=== PATIENT | male | born 1985 | race Caucasian/White ===

== ENCOUNTER → 2017-10-19 | Outpatient (CLI) | payer OTHER ==
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
== END | disposition home or self-care (01) ==
LOC: RADCTMAIN 14:27
PROVIDERS: ATTEND Family Medicine
DX: R16.1 Splenomegaly, not elsewhere classified (principal)
CPT/HCPCS: 74177; Q9967

== ENCOUNTER 2018-04-21 22:05 | Emergency (ER) | payer OTHER ==
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
[2018-04-21 23:39] VITALS: BP 129/84; PULSE 92; RESP 18; TEMP 98.1
== END 2018-04-21 23:35 | disposition home or self-care (01) ==
LOC: EC 22:05
DX: S00.83XA Contusion of other part of head, initial encounter (principal); S00.12XA Contusion of left eyelid and periocular area, initial encounter; M25.562 Pain in left knee; Z53.29 Procedure and treatment not carried out because of patient's decision for other reasons; V89.2XXA Person injured in unspecified motor-vehicle accident, traffic, initial encounter; Y92.89 Other specified places as the place of occurrence of the external cause
CPT/HCPCS: 70450; 72125; 99284

== ENCOUNTER → 2019-04-13 | Outpatient (CLI) | payer OTHER ==
--- NOTE | 2019-04-13 15:36 | US ---
EXAMINATION TYPE: US abdomen complete DATE OF EXAM: 04/13/2019 COMPARISON: CT 10/19/2017 CLINICAL HISTORY: R16.1 SPLENOMEGALY. EXAM MEASUREMENTS: Liver Length: 14.4 cm Gallbladder Wall: 0.1 cm CBD: 0.5 cm Spleen: 14.8 x 13.1 x 5.1 cm Right Kidney: 11.4 x 6.4 x 4.5 cm Left Kidney: 11.2 x 6.2 x 5.2 cm Pancreas: tail obscured by overlying bowel gas Liver: There is increased echogenicity of the hepatic parenchyma with diminished visualization of th e portal triads most commonly relating to hepatic steatosis and limiting evaluation for underlying he patic masses. Gallbladder: wnl Evidence for sonographic Connolly's sign: no CBD: wnl Spleen: enlarged Right Kidney: No hydronephrosis or masses seen Left Kidney: No hydronephrosis or masses seen Upper IVC: wnl Abd Aorta: wnl The intrahepatic portion of the IVC and proximal abdominal aorta are within normal limits. There is no evidence of cholelithiasis. Common bile duct is unremarkable. The visualized portions of the ceja creas are homogenous. The spleen is enlarged. Kidneys are symmetric and free of hydronephrosis. No renal lesions are seen. IMPRESSION: 1. Confirmation of splenomegaly. 2. Sonographic findings most commonly related to hepatic steatosis. Correlate with liver function caryl ts.
== END | disposition home or self-care (01) ==
LOC: RADUSWWP 14:35
PROVIDERS: ATTEND Internal Medicine
DX: R16.1 Splenomegaly, not elsewhere classified (principal)
CPT/HCPCS: 76700